=== PATIENT | female | born 1955 | race Caucasian/White ===

== ENCOUNTER 2019-01-30 06:51 | Day surgery (SDC) | payer BC ==
[~2019-01-30 06:51] MED LIST: ACETAMINOPHEN 1,000 MG/100 ML BTL IVPB ONE; FAMOTIDINE 20MG TABLET PO ONE; METOCLOPRAMIDE 10 MG TABLET PO ONE; SCOPOLAMINE 1 PATCH TDSY TD ONE
[2019-01-30] MEDS ORDERED: ONDANSETRON HCL IV 4 MG/2 ML VIAL IVP ONE (06:52)
[2019-01-30] MEDS ORDERED: PROPOFOL 10 MG/ML VIAL IV ONE (06:52)
[2019-01-30] MEDS ORDERED: GLYCOPYRROLATE 0.2 MG/ML ML IV ONE (06:52)
[2019-01-30] MEDS ORDERED: SUCCINYLCHOLINE 20 MG/ML 10ML IVP ONE (06:52)
[2019-01-30] MEDS ORDERED: MIDAZOLAM HCL 2MG/2ML VIAL IV ONE (06:52)
[2019-01-30] MEDS ORDERED: FENTANYL PF 100MCG/2ML VIAL IV ONE (06:52)
[2019-01-30] MEDS ORDERED: KETOROLAC 30 MG/ML VIAL IVP ONE (06:52)
[2019-01-30] MEDS ORDERED: DEXAMETHASONE 4 MG/ML 1ML VIAL IVP ONE (06:52)
[2019-01-30] MEDS ORDERED: ROCURONIUM BROMIDE 50MG/5ML VIAL IV ONE (06:52)
[2019-01-30] MEDS ORDERED: DESFLURANE 240 ML BTL INH ONE (06:52)
[2019-01-30] MEDS ORDERED: SUGAMMADEX SODIUM 200 MG/2 ML VIAL IV ONE (06:52)
[2019-01-30] MEDS ORDERED: RINGERS SOLUTION,LACTATED 1,000 ML IV ONE (07:24)
[2019-01-30] MEDS ORDERED: BUPIVACAINE 0.25% W/EPI MPF 30ML VIAL SQ ONE (09:22)
[2019-01-30] MEDS ORDERED: IBUPROFEN 600 MG TABLET PO ONE (10:33)
--- NOTE | 2019-02-02 10:50 | Operative Note ---
DATE OF SURGERY: 01/30/2019 PREOPERATIVE DIAGNOSIS: Cholelithiasis and chronic cholecystitis. POSTOPERATIVE DIAGNOSES: 1. Cholelithiasis and chronic cholecystitis. 2. Cirrhosis of the liver. SURGEON: Shlomo Romo D.O. REFERRING PHYSICIAN: Nina Huber M.D. ANESTHESIA: General. INDICATION: The patient is a 63-year-old female who is having ongoing right subcostal post prandial pain. Imaging studies did reveal a nonmobile gallstone. We did discuss cholecystectomy versus medical management. The risks include, but are not limited to, bleeding, infection, ductal injury, possible conversion to open, post operative bile leaks. She understood this fully. Consent was signed, questions were answered. PROCEDURE: She was taken to the operating room and placed in the supine position. General anesthesia was administered per the Department of Anesthesia. The patient's abdomen was prepped and draped in sterile fashion. The infraumbilical region was anesthetized with a total of 5 mL of 0.25% Sensorcaine with epinephrine. A 2 cm infraumbilical incision was made, this was carried down to the anterior rectus fascia. This was incised. A Araceli clamp was placed in the fascial edges and brought up into the wound. Stay sutures of 0 Vicryl placed. The posterior rectus sheath was identified and incised, the peritoneal cavity was entered bluntly. At this time, a 10 mm blunt Charla port was placed and an adequate pneumoperitoneum was established. Under direct visualization an additional 5 mm epigastric and two 5 mm right subcostal ports are placed. The patient was then rotated into a steep reverse Trendelenburg rotation to the left. The gallbladder was identified, the liver was also noted to be cirrhotic. There were dense omental adhesions to the anterior aspect of the gallbladder. The gallbladder was retracted in a cephalad and a lateral direction opened at the angle of Calot. The omental adhesions were taken down with the Ren Harmonic. At this time, the hepatocystic triangle was thoroughly dissected out. There was no aberrant anatomy, no posterior ductal structures. The cystic duct and the cystic artery were clearly identified. Each one was doubly clipped and cut in a standard fashion. The gallbladder was then taken off the liver bed with the Ren Harmonic. Hemostasis was noted. This was placed in an EndoCatch bag and brought out through the umbilical port. The right upper quadrant was rechecked and found to be hemostatic with no bleeding, no bile leak, and no bowel injury noted. The patient was leveled out and the pneumoperitoneum was released, all ports removed. The fascia was closed with 0 Vicryl in a figure-of-8 fashion. The skin of all 4 ports was closed with 4-0 Vicryl. She was taken to the recovery room in stable condition. FINDINGS AT THE TIME OF SURGERY: 1. Chronic cholecystitis. 2. Liver cirrhosis. MTDD
== END 2019-01-30 10:50 | disposition home or self-care (01) ==
LOC: SUR 06:51
PROVIDERS: ATTEND Surgery
DX: K80.10 Calculus of gallbladder with chronic cholecystitis without obstruction (principal); K74.60 Unspecified cirrhosis of liver; I10 Essential (primary) hypertension; E03.9 Hypothyroidism, unspecified; B19.20 Unspecified viral hepatitis C without hepatic coma
CPT/HCPCS: 47600; 00790; J1885; J2405; J3010; J3490; J0330; J7120

== ENCOUNTER 2019-03-09 10:34 | Day surgery (SDC) | payer BC ==
[2019-03-09] MEDS ORDERED: LIDOCAINE 2% MDV (20MG/ML) 20ML VIAL IV ONE (10:35)
[2019-03-09] MEDS ORDERED: PROPOFOL 10 MG/ML VIAL IV ONE (10:35)
--- NOTE | 2019-03-10 11:20 | Operative Note ---
OPERATION: ESOPHAGOGASTRODUODENOSCOPY. PREOPERATIVE DIAGNOSES: 1. History of prior treated hepatitis C with SVR achieved. 2. Recent finding consistent with cirrhosis found on cholecystectomy. EGD being performed to rule out varices. POSTOPERATIVE DIAGNOSES: 1. LA grade B/C esophagitis. 2. No varices seen. PROCEDURE: After informed consent was obtained from the patient, she was placed in the left lateral decubitus position in the endoscopy suite, sedated and monitored by the department of anesthesia. A well-lubricated [id number] gastroscope was placed in the posterior oropharynx under direct visualization and passed to the proximal esophagus. The endoscope was advanced through the proximal, mid, and distal esophagus. There were changes in the distal esophagus that were consistent with 3 quadrants of erosions and irregularity of the squamocolumnar border. No varices were seen. The gastric body, antrum, pylorus, duodenal bulb and sweep were otherwise unremarkable. J-turn views of the proximal stomach were unrevealing. No fundal or cardia varices were seen. The endoscope was straightened and retracted from the patient. Biopsies were not obtained. RECOMMENDATIONS: I would suggest the patient be on a PPI. In addition, I will check her hepatitis A and B antibody status as well as an alpha-fetoprotein. She should undergo an upper endoscopy in 1 year. I would suggest alpha-fetoprotein ultrasound be checked every 6 months for surveillance for cirrhosis and hepatoma. As always, thank you for allowing me to participate in the healthcare of your patients. [facility] SYSTEMJerardo
== END 2019-03-09 12:00 | disposition home or self-care (01) ==
LOC: HOP 10:34
PROVIDERS: ATTEND Internal Medicine Gastroenterology
DX: K21.9 Gastro-esophageal reflux disease without esophagitis (principal); Z86.19 Personal history of other infectious and parasitic diseases; K20.9 Esophagitis, unspecified; I10 Essential (primary) hypertension; E03.9 Hypothyroidism, unspecified